=== PATIENT | male | born 1930 | race Caucasian/White ===

== ENCOUNTER 2017-11-18 06:40 | Inpatient (IN) | payer MEDICARE ==
[~2017-11-18] VITALS: Ht 170.2 cm; Wt 50.9 kg
[2017-11-18] MEDS ORDERED: IV NORMAL SALINE 1,000ML 1,000 ML IV SCH (06:53)
--- NOTE | 2017-11-18 07:06 | EKG ---
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
--- NOTE | 2017-11-18 07:47 | PHYS DOC ---
Past History Past Medical History: Diabetes, Hypertension, Other Additional Past Medical Histor: muscle weakness, major depression, chronic pain , hyperlipidemia Smoking: Non-smoker Adult General Chief Complaint Chief Complaint: HYPOTENSION HPI HPI 87-year-old male patient resident of [facility] brought in by EMS because of low blood pressure and altered level of consciousness. intermediate reports the patient had blood pressure of 70/40 this morning with heart rate of more than 100 and decrease of level of consciousness. EMS reported that patient had blood pressure of more than 100 and was awake. Patient did not have any treatment under and had blood pressure of 90/54 at arrival to ER patient is admitted but was able to answer the question. Patient denies any acute problem. Review of Systems Review of Systems Constitutional: Denies fever or chills [] Eyes: Denies change in visual acuity, redness, or eye pain [] HENT: Denies nasal congestion or sore throat [] Respiratory: Denies cough or shortness of breath [] Cardiovascular: No additional information not addressed in HPI [] GI: Denies abdominal pain, nausea, vomiting, bloody stools or diarrhea [] : Denies dysuria or hematuria [] Musculoskeletal: Denies back pain or joint pain [] Integument: Denies rash or skin lesions [] Neurologic: Denies headache, focal weakness or sensory changes [] Endocrine: Denies polyuria or polydipsia [] All other systems were reviewed and found to be within normal limits, except as documented in this note. Current Medications Current Medications Current Medications Medications (Trade) Dose Ordered Sig/Tom Start Time Stop Time Status Last Admin Dose Admin Sodium Chloride 1,000 ml @ 1,000 mls/hr Q1H 11/18/17 06:53 11/18/17 07:52 UNV Physical Exam Physical Exam Constitutional: Lethargic, mild distress, non-toxic appearance. [] HENT: Normocephalic, atraumatic, bilateral external ears normal, oropharynx dry oral breathing, no oral exudates, nose normal. [] Eyes: PERRLA, EOMI, conjunctiva normal, no discharge. [] Neck: Normal range of motion, no tenderness, supple, no stridor. [] Cardiovascular: Tachycardia, no murmur [] Lungs & Thorax: Bilateral breath sounds clear to auscultation [] Abdomen: Bowel sounds normal, soft, no tenderness, no masses, no pulsatile masses. [] Skin: Warm, dry, no erythema, no rash. [] Back: No tenderness, no CVA tenderness. [] Extremities: No tenderness, no cyanosis, no clubbing, bilateral heel padding, moves lower extremities Neurologic: Lethargic, oriented X 2, normal motor function, normal sensory function, no focal deficits noted. [] EKG EKG [EKG interpreted by me. EKG at 0703 showed sinus tachycardia, abnormal left axis deviation, left anterior fascicular block, no ST and T wave abnormality] Radiology/Procedures Radiology/Procedures [] Course & Med Decision Making Course & Med Decision Making Pertinent Labs and Imaging studies reviewed. (See chart for details) Evaluation of patient in ER showed 87-year-old male patient resident of [facility] brought in by EMS because of hypotension and altered level of consciousness. Patient had tachycardia and hypotension at arrival to ER that responded well to normal saline with increase of blood pressure to more than 100 and heart rate to less than 100. Patient was lethargic but able to answer the question appropriately and followed the command. Lactic acid was not elevated. Patient had leukocytosis with elevation of BUN/creatinine and creatinine. Conner catheter was placed and about 1000 oh the urine was drained. UA showed more than 40 WBC. Patient treated with IV fluid and Rocephin and admitted to hospital case with diagnosis of sepsis secondary to UTI. Dr. Salomon accepted admission at 0914. Patient and his son at [place] and his friend with [employer] informed about plan of care. Dragon Disclaimer Dragon Disclaimer This electronic medical record was generated, in whole or in part, using a voice recognition dictation system. Departure Departure: Impression: Primary Impression: Sepsis secondary to UTI Additional Impressions: Altered level of consciousness Hypotension Tachycardia Renal insufficiency Dehydration Leukocytosis Anemia Disposition: ADMITTED INPATIENT (At 0914) Admitting Physician: Russ Salomon Condition: IMPROVED Referrals: THEA MARCELO MD (PCP) Critical Care Time Critical care time was [80] minutes exclusive of procedures. Problem Qualifiers JAVON HOLLIDAY MD Nov 18, 2017 07:47
[2017-11-18 08:00] LABS: BASO # 0.1 x10^3/uL (0.0-0.2); BASO % 0 % (0-3); EOS % 0 % (0-3); HEMATOCRIT 31.8 % (39.0-53.0); LYMPH # 0.9 x10^3/uL (1.0-4.8); LYMPH % 6 % (24-48); MEAN CORPUSCULAR HEMOGLOBIN 33 pg (25-35); MEAN CORPUSCULAR HGB CONC 35 g/dL (31-37); MEAN CORPUSCULAR VOLUME 94 fL (79-100); MONO # 1.1 x10^3/uL (0.0-1.1); MONO % 7 % (0-9); NEUT # 13.7 x10^3uL (1.8-7.7); NEUT % 87 % (31-73); PLATELET COUNT 213 x10^3/uL (140-400); RED BLOOD COUNT 3.37 x10^6/uL (4.30-5.70); WHITE BLOOD COUNT 15.8 x10^3/uL (4.0-11.0)
--- NOTE | 2017-11-18 08:15 | RAD ---
PQRS Compliance Statement: One or more of the following individualized dose reduction techniques were utilized for this examination: 1. Automated exposure control 2. Adjustment of the mA and/or kV according to patient size 3. Use of iterative reconstruction technique CT HEAD WITHOUT CONTRAST History: AMS, little HX, not responsive to commands, sleeping and snoring Comparison: None. Technique: Axial images are obtained of the head from the skull base through the vertex without IV contrast. Findings: No mass-effect, midline shift, extra-axial fluid collection, hemorrhage, or obvious acute infarction is identified. Basilar cisterns are patent. The ventricles and sulci are prominent, consistent with age-related cerebral atrophy. There is periventricular white matter hypoattenuation. This is a nonspecific finding but is commonly due to chronic small vessel ischemic disease. Bone windows demonstrate no acute calvarial abnormality. The left sphenoid sinus is mostly opacified. The other visualized paranasal sinuses are clear. Mastoid air cells are well aerated. Dense atherosclerotic calcification of the distal vertebral arteries. IMPRESSION: 1. No acute intracranial abnormality. 2. Age-related cerebral atrophy and periventricular white matter changes of chronic small vessel ischemic disease. Electronically signed by: Mello Adhikari MD (11/18/2017 8:11 AM) [id number]
[2017-11-18 08:16] LABS: INFLUENZA A PATIENT NEGATIVE (NEGATIVE); INFLUENZA B PATIENT NEGATIVE (NEGATIVE)
[2017-11-18 08:23] LABS: ALBUMIN 2.9 g/dL (3.4-5.0); ALBUMIN/GLOBULIN RATIO 0.7 (1.0-1.7); CREATININE 1.6 mg/dL (0.7-1.3); GFR 41.2; MAGNESIUM 1.3 mg/dL (1.8-2.4); TOTAL BILIRUBIN 0.4 mg/dL (0.2-1.0); TOTAL PROTEIN 6.9 g/dL (6.4-8.2)
[2017-11-18 08:38] LABS: % BANDS 11 % (0-9); % LYMPHS 4 % (24-48); % MONOS 6 % (0-10); % SEGS 79 % (35-66); PLT ESTIMATE ADEQUATE (ADEQUATE)
[2017-11-18 08:39] LABS: TOXIC GRANULATION SLIGHT
[2017-11-18 08:40] LABS: POLYCHROMASIA SLIGHT
[2017-11-18 08:53] LABS: BILIRUBIN,URINE NEG (NEG); CLARITY,URINE CLOUDY; COLOR,URINE YELLOW; GLUCOSE,URINE NEG (NEG)
--- NOTE | 2017-11-18 08:53 | RAD ---
Portable chest, 11/18/2017: History: Altered level of consciousness The heart size and pulmonary vascularity are normal. There are mild interstitial opacities in the lung bases laterally. Fibrosis is suspected. There is a calcified granuloma in the left base. No pulmonary consolidation is seen. There is no evidence of pleural fluid. IMPRESSION: Mild bilateral basilar interstitial opacities most likely represent fibrosis. Active interstitial disease is less likely.
[2017-11-18 08:54] LABS: BACTERIA,URINE MOD /HPF (0-FEW); NITRITE,URINE NEG (NEG); SQUAMOUS EPITHELIAL CELL,UR OCC /LPF; UROBILINOGEN,URINE 0.2 mg/dL (0.2 mg/dL); WBC,URINE >40 /HPF (0-4)
[2017-11-18 08:55] LABS: HYALINE CASTS, URINE OCC /HPF
[2017-11-18] MEDS ORDERED: cefTRIAXone IV Push 1 GM VIAL. IVP ONE (09:30)
[2017-11-18] MEDS: IV NORMAL SALINE 1,000ML 1,000 ML IV SCH ×2 (09:39→19:51)
[2017-11-18 11:22] VITALS: BP 116/62
[2017-11-18 11:23] VITALS: BP 116/75
[2017-11-18 16:00] VITALS: BP 159/71
--- NOTE | 2017-11-18 17:10 | HP ---
ADMIT DATE: 11/18/2017 HISTORY OF PRESENT ILLNESS: The patient is an 87-year-old male patient, a resident at [facility], who was brought by EMS to the Emergency Room because of low blood pressure and altered level of consciousness. [facility] reports that the patient's blood pressure was only 70/40 this morning with a heart rate of more than 100 and with decreased level of consciousness, EMS reported the patient had blood pressure more than 100, was awake, he did not have any treatment and had blood pressures 90/54 on arrival to the Emergency Room, where he was extensively investigated and did receive IV fluid. His lab work showed leukocytosis, white cell count of 15,800. His chemistry showed also elevated BUN and creatinine and urinalysis showed that the patient has moderate amount of leukocyte esterase and more than 40 wbc's, moderate amount of bacteria. The patient was admitted for treatment of sepsis due to urinary tract infection. The patient himself is somewhat demented; although, he does answer questions at times appropriately. PAST MEDICAL HISTORY: Significant for type 2 diabetes, hypertension, major depression, chronic pain syndrome, and hyperlipidemia. PAST SURGICAL HISTORY: Unremarkable. FAMILY HISTORY: Unremarkable. SOCIAL HISTORY: He is apparently , has 1 son and grandson who keep in touch with him. He does not smoke, drink alcohol or use any recreational drugs. ALLERGIES: He is allergic to SULFA DRUGS. MEDICATIONS: He is currently on following medications: Tylenol 650 mg every 4 hours as needed, aspirin chewable tablet 81 mg once a day, escitalopram oxalate 10 mg once a day, guaifenesin extended release for Mucinex 1200 mg twice a day, lisinopril 10 mg once a day, lovastatin 20 mg once a day, Lyrica 75 mg 1 capsule 2 times a day, metformin 500 mg twice a day, multivitamin tablet 1 tablet once a day. He is also on vitamin with iron 1 tablet once a day. REVIEW OF SYSTEMS: Unobtainable. On arrival to the Emergency Room, the patient was pale, cachectic, but no jaundiced, cyanosis, or thyromegaly. No jugular venous distension. No lower limb edema. His heart rate was 100, blood pressure was 105/55, temperature was 97.6, respiratory rate was 18, and oxygen saturation was 99% on room air. HEAD, EARS, NOSE AND THROAT: Normocephalic, atraumatic. NECK: Supple. HEART: Showed normal first and second heart sounds. No gallop, rub or murmur. CHEST: Clear to auscultation. No crepitation or rhonchi. ABDOMEN: Distended, soft, and nontender. No guarding or rigidity. No organomegaly. Hernial orifices intact. Bowel sounds normal. NEUROLOGIC: He is awake, alert, somewhat confused. All his cranial nerves are intact. EXTREMITIES: He moves his extremities without difficulty, although apparently he is mostly bedbound, chair bound. He has deep tissue injury to both heels and also on the coccyx. LABORATORY DATA: His lab work on arrival showed that his white cell count was high at 15,800, hemoglobin 11, hematocrit 32, MCV 94, platelet count of 213,000, with normal manual differential. His chemistry showed a serum sodium 140, potassium 5, chloride 104, bicarbonate 27, anion gap of 9, BUN 49, creatinine 1.6, estimated GFR was 41 mL per minute, his glucose 138, lactic acid was 1.7, calcium was 9, magnesium was 1.3. Total bilirubin, AST, ALT, alkaline phosphatase were normal. His brain natriuretic peptide was 376. Total protein was 6.9, albumin 2.9, lipase was 65. Prothrombin time was 11.6, INR 1.1. Urinalysis showed the urine was yellow, cloudy with a pH of 5, specific gravity of 1.010. The urine was negative for protein, glucose, ketones, moderate amount of blood, large amount of leukocyte esterase, 6-10 rbc's per high power field, more than 40 wbc's, moderate amount of bacteria. Her influenza A and B were negative. His chest x-ray showed that there are mild bilateral basilar interstitial opacities, most likely represents fibrosis active interstitial disease is less likely and his CT scan of the head showed that there is no mass effect, midline shift, extra-axial fluid collection, hemorrhage or obvious acute infarction identified. Basilar cisterns are patent. The ventricles and sulci are prominent consistent with age-related cerebral atrophy. There is periventricular white matter hypoattenuation, this is a nonspecific finding, but it is commonly due to chronic small vessel disease. Bone windows demonstrate no acute calvarial abnormality. The left sphenoid sinus is mostly opacified. The other visualized sinuses are clear. Mastoid air cells are well aerated, dense, arteriosclerotic, calcification of the distal vertebral arteries. IMPRESSION: In summary, this is an 87-year-old male patient who was admitted with hypotension, altered mental status, was found to be in sepsis secondary to urinary tract infection. He has also renal impairment, dehydration, leukocytosis, and anemia. We will continue with IV antibiotic in the form of ceftriaxone, continue with all his other medications and decide on further management accordingly and await the result of the urine and blood culture and sensitivity. His other medical problems include diabetes mellitus, hyperlipidemia, hypertension, and normal gait. BEKA PLEITEZ MD DR: ALLEN/kar JOB#: [id number] / [id number]
[2017-11-18] MEDS ORDERED: GUAI12003 PO (19:14)
[2017-11-18] MEDS ORDERED: PREG75CA PO (19:14)
[2017-11-18] MEDS ORDERED: ZINC50TA2 PO (19:14)
[2017-11-18] MEDS ORDERED: METF500T4 PO (19:14)
[2017-11-18] MEDS ORDERED: LOVA20TA2 PO (19:14)
[2017-11-18] MEDS ORDERED: MULT1TAB52 PO (19:14)
[2017-11-18] MEDS ORDERED: ACET500T68 PO ×2 (19:14)
[2017-11-18] MEDS ORDERED: ESCITALOPRAM OX10 MG PO (19:14)
[2017-11-18] MEDS ORDERED: LISI10TA2 PO (19:14)
[2017-11-18] MEDS ORDERED: ASPI81TA50 PO (19:14)
--- NOTE | 2017-11-18 19:45 | NUR ---
The patient, JENNIFER TAVERA, 87 y/o, M admitted by BEKA PLEITEZ MD, was given written information regarding hospital policies, unit procedures and contact persons. Patient admitted to room 107 from the ED and arrived at 1050 via EMS. Vital signs assessed. Patient oriented to the room. Valuables were checked and left with patient.
[2017-11-18 22:28] VITALS: BP 124/71
[2017-11-18] MEDS ORDERED: ACETAMINOPHEN 500 MG TABLET PO PRN ×2 (22:30)
[2017-11-18] MEDS: ATORVASTATIN CALCIUM 10 MG TABLET. PO SCH (23:11)
[2017-11-18] MEDS: PREGABALIN 75 MG CAPSULE PO SCH (23:12)
[2017-11-19 02:00] VITALS: BP 117/69
[2017-11-19 05:07] VITALS: BP 144/72
[2017-11-19] MEDS: IV NORMAL SALINE 1,000ML 1,000 ML IV SCH ×2 (05:27→22:02)
[2017-11-19 06:46] LABS: HEMATOCRIT 30.8 % (39.0-53.0); HEMOGLOBIN 10.6 g/dL (13.0-17.5); RED BLOOD COUNT 3.26 x10^6/uL (4.30-5.70); RED CELL DISTRIBUTION WIDTH 13.8 % (11.5-14.5); WHITE BLOOD COUNT 11.1 x10^3/uL (4.0-11.0)
[2017-11-19 07:08] LABS: ALBUMIN 2.5 g/dL (3.4-5.0); ALBUMIN/GLOBULIN RATIO 0.7 (1.0-1.7); CALCIUM 8.3 mg/dL (8.5-10.1); GFR 70.8; POTASSIUM 4.7 mmol/L (3.5-5.1); TOTAL BILIRUBIN 0.4 mg/dL (0.2-1.0); TOTAL PROTEIN 6.2 g/dL (6.4-8.2)
[2017-11-19] MEDS ORDERED: metFORMIN 500 MG TABLET PO SCH (08:00)
[2017-11-19] MEDS ORDERED: ZINC GLUCONATE 50 MG PO SCH (09:00)
[2017-11-19] MEDS ORDERED: PNEUMOC CONJ VACC 23-VALENT 0.5 ML VIAL. VAX IM ONE (09:00)
[2017-11-19] MEDS: metFORMIN 500 MG TABLET PO SCH ×2 (09:40→17:13)
[2017-11-19] MEDS: MULTIVITAMIN with MINERAL TABLET. PO SCH (09:40)
[2017-11-19] MEDS: LACTOBACILLUS RHAMNOSUS GG 1 CAPSULE. PO SCH ×2 (09:40→20:50)
[2017-11-19] MEDS: PREGABALIN 75 MG CAPSULE PO SCH ×2 (09:41→20:49)
[2017-11-19] MEDS: ASPIRIN ENTERIC COATED 81 MG TABLET.DR. PO SCH (09:41)
[2017-11-19] MEDS: LISINOPRIL 10 MG TABLET PO SCH (09:41)
[2017-11-19] MEDS: cefTRIAXone IV Push 1 GM VIAL. IVP SCH (09:43)
[2017-11-19] MEDS: CITALOPRAM 20 MG TABLET. PO SCH (09:43)
[2017-11-19 10:57] VITALS: BP 137/66
[2017-11-19 14:27] VITALS: BP 135/63
--- NOTE | 2017-11-19 18:09 | NUR ---
Wound Care Wound care consult for pressure ulcer on L buttock. Pt has stage 2 on L buttock, a DTI on R heel, a trauma wound on R medial ankle and a trauma wound on L great toe. Cleansed wounds, pictured and measured BLE wounds. Dressed buttock with foam ad hydrocolloid, change every 3 days. Dressed ankle with xeroform and foam, change every 3-4 days. Dressed Bilat heels with skin prep and protective foams, L heel is boggy but has no breakdown at this time. Dressed great toe with skin prep, recommend to do this daily. No ohter wounds found on full skin inspection. Educated pt to keep rook boots on unless ambulating and to rotate pressure on buttocks at least every 2 hours to prevent further breakdown. Pt v/u. WC will continue to follow for possible changes. Instruction sheet left in room.
[2017-11-19 19:23] VITALS: BP 149/75
[2017-11-19] MEDS: ATORVASTATIN CALCIUM 10 MG TABLET. PO SCH (20:50)
[2017-11-19 23:40] VITALS: BP 161/75
--- NOTE | 2017-11-20 00:05 | NUR ---
Nursing Note Pt confused pulled apart IV accidentally, got his gown all wet. Can articulate to me that he has been "Sweating and is wet" needs a new gown.
[2017-11-20 05:32] VITALS: BP 118/47
[2017-11-20 07:09] LABS: HEMATOCRIT 29.4 % (39.0-53.0); HEMOGLOBIN 10.2 g/dL (13.0-17.5); RED BLOOD COUNT 3.13 x10^6/uL (4.30-5.70); RED CELL DISTRIBUTION WIDTH 13.8 % (11.5-14.5); WHITE BLOOD COUNT 7.5 x10^3/uL (4.0-11.0)
[2017-11-20 07:15] LABS: CALCIUM 8.3 mg/dL (8.5-10.1); GFR 70.8; POTASSIUM 4.5 mmol/L (3.5-5.1)
[2017-11-20] MEDS: LACTOBACILLUS RHAMNOSUS GG 1 CAPSULE. PO SCH ×2 (08:31→20:17)
[2017-11-20] MEDS: MULTIVITAMIN with MINERAL TABLET. PO SCH (08:32)
[2017-11-20] MEDS: CITALOPRAM 20 MG TABLET. PO SCH (08:32)
[2017-11-20] MEDS: PREGABALIN 75 MG CAPSULE PO SCH ×2 (08:32→20:17)
[2017-11-20] MEDS: metFORMIN 500 MG TABLET PO SCH ×2 (08:32→17:00)
[2017-11-20] MEDS: ASPIRIN ENTERIC COATED 81 MG TABLET.DR. PO SCH (08:33)
[2017-11-20] MEDS: LISINOPRIL 10 MG TABLET PO SCH (08:33)
[2017-11-20] MEDS: cefTRIAXone IV Push 1 GM VIAL. IVP SCH (09:00)
[2017-11-20 10:36] VITALS: BP 133/68
[2017-11-20] MEDS: IV NORMAL SALINE 1,000ML 1,000 ML IV SCH (13:20)
[2017-11-20 14:52] VITALS: BP 163/74
[2017-11-20 19:33] VITALS: BP 163/74
[2017-11-20] MEDS: ATORVASTATIN CALCIUM 10 MG TABLET. PO SCH (20:16)
[2017-11-20 23:19] VITALS: BP 138/70
--- NOTE | 2017-11-21 01:27 | PN ---
DATE: 11/19/2017 SUBJECTIVE: The patient is sitting comfortably in his chair, in no apparent distress. He is definitely more awake, alert, has done very well in his breakfast and lunch, and was able to walk with physical therapy questioning him, he denied any complaint. OBJECTIVE: GENERAL: When I examined him, he looked pale, but not jaundiced, cyanosis, or thyromegaly. No jugular venous distention edema. VITAL SIGNS: His heart rate was 84, blood pressure 137/66, temperature was 98.2, respiratory rate 20, and oxygen saturation was 100%, on 2 liters of oxygen. HEAD, EYES, EARS, NOSE AND THROAT: Showed normocephalic, atraumatic. NECK: Supple. HEART: Showed normal first and second heart sounds. No gallop, rub or murmur. CHEST: Clear to auscultation. No crepitation or rhonchi. ABDOMEN: Distended, soft, and nontender. NEUROLOGIC: He is definitely more awake, alert, responding appropriately. All cranial nerves are intact. He moves extremities without difficulty, ambulates with a walker with standby assist. His intake over the last 24 hours was 1883, output was 1750. LABORATORY DATA: White cell count of 11,000, hemoglobin 11, hematocrit 31, MCV 94, and platelet count of 177,000. His chemistry showed a serum sodium 143, potassium 109, bicarbonate 27, anion gap of 7, BUN 31, creatinine 1, estimated GFR was 70 mL per minute, his glucose 112, calcium was 8.3. Total bilirubin, AST, ALT, alkaline phosphatase were normal. Total protein was 6.2, albumin 2.5. His prothrombin time was 11.6, INR 1.1. His blood culture is negative. ASSESSMENT: 1. This is an 87-year-old male patient who was admitted with hypertension, altered mental status, was found to be septic secondary to urinary tract infection. 2. Renal impairment. 3. Dehydration. 4. Leukocytosis. 5. Anemia. PLAN: To continue with IV ceftriaxone, continue the IV fluid. Repeat his labs tomorrow and await the result of the urine culture. BEKA PLEITEZ MD DR: ALLEN/kar JOB#: [id number] / [id number]
[2017-11-21] MEDS: IV NORMAL SALINE 1,000ML 1,000 ML IV SCH ×2 (02:11→16:00)
[2017-11-21 05:33] VITALS: BP 135/72
[2017-11-21 07:40] LABS: HEMATOCRIT 28.9 % (39.0-53.0); RED BLOOD COUNT 3.1 x10^6/uL (4.30-5.70); RED CELL DISTRIBUTION WIDTH 13.6 % (11.5-14.5)
[2017-11-21 07:43] LABS: ALBUMIN 2.3 g/dL (3.4-5.0); ALBUMIN/GLOBULIN RATIO 0.7 (1.0-1.7); CALCIUM 8.4 mg/dL (8.5-10.1); GFR 70.8; POTASSIUM 4.8 mmol/L (3.5-5.1); TOTAL BILIRUBIN 0.3 mg/dL (0.2-1.0); TOTAL PROTEIN 5.8 g/dL (6.4-8.2)
[2017-11-21] MEDS: LACTOBACILLUS RHAMNOSUS GG 1 CAPSULE. PO SCH ×2 (08:50→20:15)
[2017-11-21] MEDS: ASPIRIN ENTERIC COATED 81 MG TABLET.DR. PO SCH (08:50)
[2017-11-21] MEDS: MULTIVITAMIN with MINERAL TABLET. PO SCH (08:51)
[2017-11-21] MEDS: metFORMIN 500 MG TABLET PO SCH ×2 (08:51→20:01)
[2017-11-21] MEDS: PREGABALIN 75 MG CAPSULE PO SCH ×2 (08:52→20:15)
[2017-11-21] MEDS: LISINOPRIL 10 MG TABLET PO SCH (08:55)
[2017-11-21 09:46] VITALS: BP 148/75
[2017-11-21 14:07] VITALS: BP 132/70
--- NOTE | 2017-11-21 16:31 | PN ---
DATE: 11/20/2017 SUBJECTIVE: The patient is resting, slightly propped up in bed, in no apparent respiratory distress, sleepy, but arousable. On questioning him, he denied any complaint. Nursing staff did not voice any concern and stated he had an uneventful night. PHYSICAL EXAMINATION: GENERAL: When I examined him, he looked well and was clearly in no apparent respiratory distress, pale, but no jaundice, cyanosis, or thyromegaly. No jugular venous distension. No limb edema. VITAL SIGNS: His heart rate was 95, blood pressure 163/74, temperature was 97.4, respiratory rate was 18, and oxygen saturation 100% on room air. HEAD, EYES, EARS, NOSE AND THROAT: Showed normocephalic, atraumatic. NECK: Supple. HEART: Showed normal first and second heart sounds with no gallop, rub or murmur. CHEST: Clear to auscultation. No crepitation or rhonchi. ABDOMEN: Distended, soft, nontender. No guarding or rigidity. No organomegaly. Hernial orifice intact. Bowel sounds normal. NEUROLOGIC: He is sleepy, but arousable. Cranial nerves intact. EXTREMITIES: He moves extremities without difficulty, although he is mostly bedbound, chair bound. His intake over the last 24 hours was 1880, output 1750. LABORATORY DATA: As of this morning showed a serum sodium 142, potassium 4.5, chloride 109, bicarbonate 27, anion gap of 6, BUN 24, creatinine 1, estimated GFR was 70 mL per minute. His blood sugar was 142, calcium was 8.3. White cell count is down to 7500, hemoglobin 10, hematocrit 29, MCV 94 and platelet count of 106,000. His urine culture showed growth of methicillin-susceptible Staph aureus, not Staph saprophyticus. The bacteria are sensitive to gentamicin, linezolid, nitrofurantoin, oxacillin, rifampin, tetracycline, trimethoprim, and sulfamethoxazole. His blood cultures are so far negative. PLAN: My plan is to switch him to cefuroxime 500 mg twice a day and repeat all his lab works tomorrow and discharge him hopefully back to [place] either tomorrow or Wednesday morning. BEKA PLEITEZ MD DR: ALLEN/kar JOB#: [id number] / [id number]
[2017-11-21 19:35] VITALS: BP 103/52
[2017-11-21] MEDS: ATORVASTATIN CALCIUM 10 MG TABLET. PO SCH (20:14)
[2017-11-21] MEDS: TAMSULOSIN 0.4 MG CAP.ER.24H. PO SCH (20:15)
[2017-11-21 23:00] VITALS: BP 137/65
[2017-11-22] MEDS: IV NORMAL SALINE 1,000ML 1,000 ML IV SCH ×2 (05:35→19:59)
[2017-11-22 05:55] VITALS: BP 113/55
[2017-11-22 06:12] LABS: BASO # 0.1 x10^3/uL (0.0-0.2); BASO % 1 % (0-3); EOS # 0.4 x10^3/uL (0.0-0.7); EOS % 5 % (0-3); HEMATOCRIT 25.5 % (39.0-53.0); LYMPH # 1.1 x10^3/uL (1.0-4.8); LYMPH % 13 % (24-48); MEAN CORPUSCULAR HEMOGLOBIN 33 pg (25-35); MEAN CORPUSCULAR HGB CONC 35 g/dL (31-37); MEAN CORPUSCULAR VOLUME 93 fL (79-100); MONO # 0.7 x10^3/uL (0.0-1.1); MONO % 8 % (0-9); NEUT % 73 % (31-73); PLATELET COUNT 155 x10^3/uL (140-400); RED BLOOD COUNT 2.75 x10^6/uL (4.30-5.70); RED CELL DISTRIBUTION WIDTH 13.8 % (11.5-14.5); WHITE BLOOD COUNT 8.2 x10^3/uL (4.0-11.0)
[2017-11-22 06:24] LABS: ALBUMIN 1.9 g/dL (3.4-5.0); ALBUMIN/GLOBULIN RATIO 0.6 (1.0-1.7); CREATININE 0.9 mg/dL (0.7-1.3); POTASSIUM 4.4 mmol/L (3.5-5.1); TOTAL BILIRUBIN 0.2 mg/dL (0.2-1.0); TOTAL PROTEIN 5.1 g/dL (6.4-8.2)
[2017-11-22] MEDS: VANCOMYCIN 125 MG/2.5 ML ORAL SOLUTION. PO SCH ×4 (08:52→19:59)
[2017-11-22] MEDS: metFORMIN 500 MG TABLET PO SCH ×2 (08:54→17:45)
[2017-11-22] MEDS: LACTOBACILLUS RHAMNOSUS GG 1 CAPSULE. PO SCH ×2 (08:54→20:00)
[2017-11-22] MEDS: ASPIRIN ENTERIC COATED 81 MG TABLET.DR. PO SCH (08:54)
[2017-11-22] MEDS: LISINOPRIL 10 MG TABLET PO SCH (08:55)
[2017-11-22] MEDS: MULTIVITAMIN with MINERAL TABLET. PO SCH (08:55)
[2017-11-22] MEDS: PREGABALIN 75 MG CAPSULE PO SCH ×3 (08:55→21:16)
[2017-11-22 10:39] VITALS: BP 113/49
--- NOTE | 2017-11-22 11:38 | PN ---
DATE: 11/21/2017 SUBJECTIVE: The patient is resting slightly propped up in bed, in no apparent distress. He was sleepy, but arousable. On questioning him, he denied any complaint. The nursing staff did not voice any concern and stated he had an uneventful night. PHYSICAL EXAMINATION: GENERAL: When I examined him, he looked pale, cachectic, but no jaundice, cyanosis, or thyromegaly. No jugular venous distension. No limb edema. VITAL SIGNS: His heart rate was 92, blood pressure was 148/75, temperature was 97.7, respiratory rate 24, and oxygen saturation was 100% on room air. HEAD, EYES, EARS, NOSE AND THROAT: Showed normocephalic, atraumatic. NECK: Supple. HEART: Showed normal first and second heart sounds with no gallop, rub or murmur. CHEST: Clear to auscultation. No crepitation or rhonchi. ABDOMEN: Distended, soft, nontender. No guarding or rigidity. No organomegaly. Hernial orifice intact. Bowel sounds normal. NEUROLOGIC: He is asleep, but arousable. Cranial nerves intact. He moves extremities without difficulty, ambulates with a walker. His intake over the last 24 hours was 2686, output was 2325. LABORATORY DATA: Showed a white cell count of 8000, hemoglobin 10, hematocrit 29, MCV 94 and platelet count of 169,000. Her chemistry showed a serum sodium 139, potassium 4.8, chloride 107, bicarbonate 27, anion gap of 5, BUN 19, creatinine 1, estimated GFR was 71 mL per minute, his glucose 120, calcium was 8.4. Total bilirubin, AST, ALT, alkaline phosphatase were normal. His total protein was 5.8, albumin 2.3. His prothrombin time was 11.6, INR 1.1. His urine culture has grown coagulase negative staph, species not Staph saprophyticus with the growth of 50,000-100,000 colony forming units per mL. The patient is methicillin-sensitive Staph aureus. The bacteria is sensitive to gentamicin, linezolid, nitrofurantoin, rifampin, tetracycline and trimethoprim sulfamethoxazole. The patient was switched to linezolid and can be switched tomorrow to either trimethoprim sulfamethoxazole or tetracycline, can be discharged back to the [facility] to finish treatment there. ASSESSMENT: 1. Hypertension with altered mental status and was found to be septic secondary to urinary tract infection. 2. Urine culture has grown methicillin-sensitive Staphylococcus aureus. 3. Renal impairment, resolved. 4. Dehydration, resolved. 5. Leukocytosis, resolved. 6. Anemia, stable with hemoglobin of around 10 and hematocrit 30. BEKA PLEITEZ MD DR: ALLEN/kar JOB#: [id number] / [id number]
[2017-11-22 14:23] VITALS: BP 124/63
[2017-11-22 19:28] VITALS: BP 147/69
[2017-11-22] MEDS: ATORVASTATIN CALCIUM 10 MG TABLET. PO SCH (20:00)
[2017-11-22] MEDS: TAMSULOSIN 0.4 MG CAP.ER.24H. PO SCH (20:00)
--- NOTE | 2017-11-23 02:40 | PN ---
DATE: 11/22/2017 CURRENT PROBLEMS: 1. Methicillin-susceptible Staph aureus urinary tract infection. 2. Altered mental status, which has definitely improved. 3. Sepsis secondary to urinary tract infection. 4. Dehydration, improved. 5. Leukocytosis, improved. 6. Normochromic, normocytic anemia. 7. Severe protein-calorie malnutrition and underweight for height. 8. New onset diarrhea x3, awaiting C. diff. SUBJECTIVE: An 87-year-old ____ care today with the above problems. He is doing a little bit better. He has had one episode of diarrhea this morning. His C. diff is pending. Otherwise, he has been tolerating his medications fine, sitting up in a chair. [facility] is [facility]. OBJECTIVE: VITAL SIGNS: Blood pressure 113/49, pulse 78, respirations 22, temperature 97.6, pulse ox 100% on 2 liters, current weight is 111.19. GENERAL: Frail elderly male, in no acute distress, sitting up in the chair. His color is pale. HEENT: Tongue moist. NECK: Supple. LUNGS: Clear. CARDIOVASCULAR: Regular rhythm and rate without murmur. ABDOMEN: Soft, nontender. EXTREMITIES: Without edema or tenderness. LABORATORY DATA: Hemoglobin is 9.0, hematocrit is 25.5. This is a drop from 11 on the 4th, but he was very dehydrated. Stated urine culture grew out Coag negative staph. PLAN: Await the C. diff, did start him empirically on p.o. vancomycin and we will continue to monitor his condition, probably discharge tomorrow. YONI CORTEZ DO DR: CHICHI/kar JOB#: [id number] / [id number]
[2017-11-23 05:42] VITALS: BP 143/63
[2017-11-23 07:02] LABS: ALBUMIN 2.1 g/dL (3.4-5.0); ALBUMIN/GLOBULIN RATIO 0.6 (1.0-1.7); CALCIUM 8.3 mg/dL (8.5-10.1); GFR 70.8; MAGNESIUM 1.2 mg/dL (1.8-2.4); POTASSIUM 4.7 mmol/L (3.5-5.1); TOTAL BILIRUBIN 0.3 mg/dL (0.2-1.0); TOTAL PROTEIN 5.5 g/dL (6.4-8.2)
[2017-11-23 07:19] LABS: HEMATOCRIT 28.2 % (39.0-53.0); HEMOGLOBIN 9.3 g/dL (13.0-17.5); MEAN CORPUSCULAR HEMOGLOBIN 31 pg (25-35); MEAN CORPUSCULAR HGB CONC 33 g/dL (31-37); MEAN CORPUSCULAR VOLUME 94 fL (79-100); PLATELET COUNT 186 x10^3/uL (140-400); RED BLOOD COUNT 3.01 x10^6/uL (4.30-5.70); RED CELL DISTRIBUTION WIDTH 13.9 % (11.5-14.5); WHITE BLOOD COUNT 6.8 x10^3/uL (4.0-11.0)
[2017-11-23] MEDS ORDERED: MAGNESIUM SULFATE 2GM 50 ML IV ONE (08:30)
[2017-11-23] MEDS: PREGABALIN 75 MG CAPSULE PO SCH (08:39)
[2017-11-23] MEDS: metFORMIN 500 MG TABLET PO SCH (08:39)
[2017-11-23] MEDS: ASPIRIN ENTERIC COATED 81 MG TABLET.DR. PO SCH (08:40)
[2017-11-23] MEDS: LACTOBACILLUS RHAMNOSUS GG 1 CAPSULE. PO SCH (08:40)
[2017-11-23] MEDS: LISINOPRIL 10 MG TABLET PO SCH (08:40)
[2017-11-23] MEDS: MULTIVITAMIN with MINERAL TABLET. PO SCH (08:40)
[2017-11-23] MEDS ORDERED: ASCORBIC ACID 500 MG TABLET PO SCH (09:00)
[2017-11-23] MEDS ORDERED: DOXYCYCLINE HYCLATE 100 MG TABLET PO SCH (09:00)
[2017-11-23 09:22] LABS: % BANDS 1 % (0-9); % BASOS 1 % (0-3); % EOS 3 % (0-5); % LYMPHS 17 % (24-48); % MONOS 5 % (0-10); % SEGS 73 % (35-66)
[2017-11-23 09:23] LABS: ANISOCYTOSIS SLIGHT; MICROCYTOSIS SLIGHT; PLT ESTIMATE ADEQUATE (ADEQUATE)
[2017-11-23 10:43] VITALS: BP 135/65
--- NOTE | 2017-11-23 11:17 | PDOC3 ---
Discharge Summary Visit Information Date of Admission: Nov 18, 2017 Date of Discharge: Nov 23, 2017 Final Diagnosis Problems Medical Problems: (1) Altered level of consciousness Status: Acute (2) Anemia Status: Acute (3) Dehydration Status: Acute (4) Hypotension Status: Acute (5) Leukocytosis Status: Acute (6) Renal insufficiency Status: Acute (7) Sepsis secondary to UTI Status: Acute (8) Tachycardia Status: Acute CURRENT PROBLEMS: 1. Methicillin-susceptible Staph aureus urinary tract infection. 2. Altered mental status, which has definitely improved. 3. Sepsis secondary to urinary tract infection. 4. Dehydration, improved. 5. Leukocytosis, improved. 6. Normochromic, normocytic anemia. 7. Severe protein-calorie malnutrition and underweight for height. 8. New onset diarrhea x3, awaiting C. diff.-c.diff neg 9. hypomagnesemia-being treated 10.STAGE 2 PRESSURE WOUND LEFT BUTTOCK 11. DTI RIGHT HEEL 12. TRAUMA WOUND RIGHT MEDIAL ANKLE AND LEFT GREAT TOE Problems: Brief Hospital Course Allergies Allergies Coded Allergies Type Severity Reaction Last Updated Verified Sulfa (Sulfonamide Antibiotics) Allergy Intermediate 11/19/17 Yes Vital Signs Vital Signs Date Time Temp Pulse Resp B/P (MAP) Pulse Ox O2 Delivery O2 Flow Rate FiO2 11/23/17 10:43 97.6 78 20 135/65 (88) 100 11/23/17 08:00 Nasal Cannula 2.0 Lab Results Laboratory Tests Test 11/21/17 11:24 11/21/17 16:21 11/21/17 22:05 11/22/17 05:59 Glucose (Fingerstick) 194 mg/dL (70-99) 158 mg/dL (70-99) Clostridium difficile Toxin (PCR) Negative (Negative) White Blood Count 8.2 x10^3/uL (4.0-11.0) Red Blood Count 2.75 x10^6/uL (4.30-5.70) Hemoglobin 9.0 g/dL (13.0-17.5) Hematocrit 25.5 % (39.0-53.0) Mean Corpuscular Volume 93 fL (79-100) Mean Corpuscular Hemoglobin 33 pg (25-35) Mean Corpuscular Hemoglobin Concent 35 g/dL (31-37) Red Cell Distribution Width 13.8 % (11.5-14.5) Platelet Count 155 x10^3/uL (140-400) Neutrophils (%) (Auto) 73 % (31-73) Lymphocytes (%) (Auto) 13 % (24-48) Monocytes (%) (Auto) 8 % (0-9) Eosinophils (%) (Auto) 5 % (0-3) Basophils (%) (Auto) 1 % (0-3) Neutrophils # (Auto) 6.0 x10^3uL (1.8-7.7) Lymphocytes # (Auto) 1.1 x10^3/uL (1.0-4.8) Monocytes # (Auto) 0.7 x10^3/uL (0.0-1.1) Eosinophils # (Auto) 0.4 x10^3/uL (0.0-0.7) Basophils # (Auto) 0.1 x10^3/uL (0.0-0.2) Sodium Level 140 mmol/L (136-145) Potassium Level 4.4 mmol/L (3.5-5.1) Chloride Level 108 mmol/L (98-107) Carbon Dioxide Level 24 mmol/L (21-32) Anion Gap 8 (6-14) Blood Urea Nitrogen 20 mg/dL (8-26) Creatinine 0.9 mg/dL (0.7-1.3) Estimated GFR (Cockcroft-Gault) 80.0 BUN/Creatinine Ratio 22 (6-20) Glucose Level 119 mg/dL (70-99) Calcium Level 8.0 mg/dL (8.5-10.1) Total Bilirubin 0.2 mg/dL (0.2-1.0) Aspartate Amino Transf (AST/SGOT) 18 U/L (15-37) Alanine Aminotransferase (ALT/SGPT) 16 U/L (16-63) Alkaline Phosphatase 50 U/L (46-116) Total Protein 5.1 g/dL (6.4-8.2) Albumin 1.9 g/dL (3.4-5.0) Albumin/Globulin Ratio 0.6 (1.0-1.7) Test 11/22/17 07:18 11/22/17 11:28 11/22/17 16:25 11/22/17 19:41 Glucose (Fingerstick) 111 mg/dL (70-99) 186 mg/dL (70-99) 140 mg/dL (70-99) 138 mg/dL (70-99) Test 11/23/17 06:11 11/23/17 07:31 White Blood Count 6.8 x10^3/uL (4.0-11.0) Red Blood Count 3.01 x10^6/uL (4.30-5.70) Hemoglobin 9.3 g/dL (13.0-17.5) Hematocrit 28.2 % (39.0-53.0) Mean Corpuscular Volume 94 fL (79-100) Mean Corpuscular Hemoglobin 31 pg (25-35) Mean Corpuscular Hemoglobin Concent 33 g/dL (31-37) Red Cell Distribution Width 13.9 % (11.5-14.5) Platelet Count 186 x10^3/uL (140-400) Segmented Neutrophils % 73 % (35-66) Band Neutrophils % 1 % (0-9) Lymphocytes % 17 % (24-48) Monocytes % 5 % (0-10) Eosinophils % 3 % (0-5) Basophils % 1 % (0-3) Platelet Estimate Adequate (ADEQUATE) Anisocytosis Slight Microcytosis Slight Sodium Level 142 mmol/L (136-145) Potassium Level 4.7 mmol/L (3.5-5.1) Chloride Level 109 mmol/L (98-107) Carbon Dioxide Level 28 mmol/L (21-32) Anion Gap 5 (6-14) Blood Urea Nitrogen 18 mg/dL (8-26) Creatinine 1.0 mg/dL (0.7-1.3) Estimated GFR (Cockcroft-Gault) 70.8 BUN/Creatinine Ratio 18 (6-20) Glucose Level 113 mg/dL (70-99) Calcium Level 8.3 mg/dL (8.5-10.1) Magnesium Level 1.2 mg/dL (1.8-2.4) Total Bilirubin 0.3 mg/dL (0.2-1.0) Aspartate Amino Transf (AST/SGOT) 21 U/L (15-37) Alanine Aminotransferase (ALT/SGPT) 21 U/L (16-63) Alkaline Phosphatase 54 U/L (46-116) Total Protein 5.5 g/dL (6.4-8.2) Albumin 2.1 g/dL (3.4-5.0) Albumin/Globulin Ratio 0.6 (1.0-1.7) Glucose (Fingerstick) 94 mg/dL (70-99) Brief Hospital Course Mr. Ramirez is a 87 old [sex] who presented with [ ] HISTORY OF PRESENT ILLNESS: The patient is an 87-year-old male patient, a resident at [facility], who was brought by EMS to the Emergency Room because of low blood pressure and altered level of consciousness. alf reports that the patient's blood pressure was only 70/40 this morning with a heart rate of more than 100 and with decreased level of consciousness, EMS reported the patient had blood pressure more than 100, was awake, he did not have any treatment and had blood pressures 90/54 on arrival to the Emergency Room, where he was extensively investigated and did receive IV fluid.He was hydrated and treated with antibiotics. He developed diarrhea but his c. diff was negative and the diarrhea was not severe. He was started on nutritional supplements for his malnutrition. He will be going back to nursing facility on skilled services. HE WAS SEEN BY THE WOUND NURSE AND A PLAN OF CARE WAS PRESCRIBED FOR HIS WOUNDS. Discharge Information Condition at Discharge: Improved Disposition/Orders: D/C to Another Facility Dischare Medications Current Medications Sodium Chloride 1,000 ml @ 1,000 mls/hr Q1H IV Last administered on 11/18/17at 07:30; Start 11/18/17 at 06:53; Stop 11/18/17 at 09:17; Status DC Ceftriaxone Sodium 1 gm/ Sodium Chloride 50 ml @ 100 mls/hr 1X ONCE IV ; Start 11/18/17 at 09:15; Stop 11/18/17 at 09:44; Status UNV Sodium Chloride 1,000 ml @ 100 mls/hr Q10H IV Last administered on 11/19/17at 05 :27; Start 11/18/17 at 09:15; Stop 11/19/17 at 09:14; Status DC Ceftriaxone Sodium (Rocephin) 1 gm 1X ONCE IVP Last administered on 11/18/17at 09:30; Start 11/18/17 at 09:30; Stop 11/18/17 at 09:31; Status DC Pneumococcal Polyvalent Vaccine (Pneumovax 23) 0.5 ml ONCE ONCE VAX IM Last administered on 11/19/17at 20:46; Start 11/19/17 at 09:00; Stop 11/19/17 at 09:01; Status DC Acetaminophen (Tylenol) 1,000 mg PRN Q6HRS PRN PO MILD PAIN / TEMP Last administered on 11/20/17at 00:45; Start 11/18/17 at 22:30 Acetaminophen (Tylenol) 500 mg PRN Q4HRS PRN PO PAIN / TEMP Last administered on 11/22/17 20:00; Start 11/18/17 at 22:30 Aspirin (Aspirin Enteric Coated) 81 mg DAILY PO Last administered on 11/23/17at 08:40; Start 11/19/17 at 09:00 Lisinopril (Prinivil) 10 mg DAILY PO Last administered on 11/23/17 08:40; Start 11/19/17 at 09:00 Metformin HCl (Glucophage) 500 mg BIDWMEALS PO ; Start 11/19/17 at 08:00; Stop at 08:00; Status DC Pregabalin (Lyrica) 75 mg BID PO Last administered on 11/23/17at 08:39; Start 11/18/17 at 22:30 Citalopram Hydrobromide (CeleXA) 20 mg DAILY PO Last administered on 11/20/17at 08:32; Start 11/19/17 at 09:00; Stop 11/20/17 at 17:26; Status DC Guaifenesin (Mucinex Er) 1,200 mg BID PO Last administered on 11/23/17 08:40; Start 11/18/17 at 22:30 Atorvastatin Calcium (Lipitor) 5 mg QHS PO Last administered on 11/22/17at 20:00 ; Start 11/18/17 at 22:30 Multivitamins/ Calcium (Thera-M Plus) 1 tab DAILY PO Last administered on at 08:40; Start 11/19/17 at 09:00 Non-Formulary Medication 50 mg DAILY PO ; Start 11/19/17 at 09:00; Stop 11/19/17 at 09:00; Status DC Ceftriaxone Sodium 1 gm/ Sodium Chloride 50 ml @ 100 mls/hr Q24H IV ; Start 11/19/17 at 09:30; Status UNV Ceftriaxone Sodium (Rocephin) 1 gm Q24H IVP Last administered on 11/20/17at 09:00 ; Start 11/19/17 at 09:00; Stop 11/20/17 at 17:25; Status DC Lactobacillus Rhamnosus (Culturelle) 1 cap BID PO Last administered on at 08:40; Start 11/19/17 at 09:00 Metformin HCl (Glucophage) 500 mg BIDWMEALS PO Last administered on 11/23/17at 08 :39; Start 11/19/17 at 08:00 Sodium Chloride 1,000 ml @ 75 mls/hr [id number] IV Last administered on 11/22/17at 19:59; Start 11/20/17 at 00:00; Stop 11/23/17 at 08:24; Status DC Linezolid 300 ml @ 300 mls/hr Q12H IV Last administered on 11/22/17 19:59; Start 11/20/17 at 18:00; Stop 11/23/17 at 08:25; Status DC Tamsulosin HCl (Flomax) 0.4 mg QHS PO Last administered on 11/22/17at 20:00; Start 11/21/17 at 21:00 Vancomycin HCl 125 mg [id number] PO Last administered on 11/22/17at 19:59; Start 11/22/17 at 09:00; Stop 11/22/17 at 21:48; Status DC Magnesium Sulfate 50 ml @ 25 mls/hr 1X ONCE IV Last administered on 11/23/17at 10:07; Start 11/23/17 at 08:30; Stop 11/23/17 at 10:29; Status DC Ascorbic Acid (Vitamin C) 500 mg DAILY PO Last administered on 11/23/17at 10:06; Start 11/23/17 at 09:00 Doxycycline Hyclate (Vibra-Tab) 100 mg BID PO Last administered on 11/23/17at 10: 05; Start 11/23/17 at 09:00 Magnesium Oxide (Magnesium Oxide) 400 mg BIDACLD PO ; Start 11/23/17 at 11:30 Active Scripts Active Reported Mucinex (Guaifenesin) 1,200 Mg Tbmp.12hr 1,200 Mg PO BID Zinc (Zinc Gluconate) 50 Mg Tablet 50 Mg PO DAILY 14 Days Multivitamins (Multivitamin) 1 Each Tablet 1 Tab PO DAILY Metformin Hcl 500 Mg Tablet 500 Mg PO BIDWMEALS Lyrica (Pregabalin) 75 Mg Capsule 75 Mg PO BID Lovastatin 20 Mg Tablet 20 Mg PO DAILY Lisinopril 10 Mg Tablet 10 Mg PO DAILY Escitalopram Oxalate 10 Mg Tablet 10 Mg PO DAILY Aspir-Low (Aspirin) 81 Mg Tablet.dr 81 Mg PO DAILY Acetaminophen 500 Mg Tablet 1,000 Mg PO Q6HRS PRN Acetaminophen 500 Mg Tablet 500 Mg PO Q4HRS PRN MDD / Patient Instructions Patient Instuctions DISCHARGE TO SNF.MEDIOCATIONS RECONCILED. YONI CORTEZ DO Nov 23, 2017 11:17
[2017-11-23] MEDS ORDERED: MAGNESIUM OXIDE 400 MG TABLET PO SCH (11:30)
--- NOTE | 2017-11-23 12:55 | NUR ---
NSG NOTE; DISCHARGE REPORT CALLED TO [facility] EUGENE LEFT IN PLACE PER DR CORTEZ'S ORDERS HARD COPY OF CHART SENT WITH PT ON DISCHARGE AT 1255 TO [facility] VIA W/C ACCOMP BY TRANSPORT PERSONNEL
== END 2017-11-23 12:55 | disposition home or self-care (01) | DRG 871 ==
LOC: ER 06:40 → 1 SOUTH 09:19
PROVIDERS: ADMIT Internal Medicine; ATTEND Internal Medicine
DX: A41.9 Sepsis, unspecified organism (principal); E43 Unspecified severe protein-calorie malnutrition; L89.322 Pressure ulcer of left buttock, stage 2; G93.41 Metabolic encephalopathy; L89.610 Pressure ulcer of right heel, unstageable; D64.9 Anemia, unspecified; E86.0 Dehydration; E83.42 Hypomagnesemia; E11.9 Type 2 diabetes mellitus without complications; N39.0 Urinary tract infection, site not specified; Z68.1 Body mass index [BMI] 19.9 or less, adult; F03.90 Unspecified dementia, unspecified severity, without behavioral disturbance, psychotic disturbance, mood disturbance, and anxiety; E78.5 Hyperlipidemia, unspecified; F32.9 Major depressive disorder, single episode, unspecified; I10 Essential (primary) hypertension; N28.9 Disorder of kidney and ureter, unspecified; G89.4 Chronic pain syndrome; B95.61 Methicillin susceptible Staphylococcus aureus infection as the cause of diseases classified elsewhere; R19.7 Diarrhea, unspecified; S91.001A Unspecified open wound, right ankle, initial encounter; S91.102A Unspecified open wound of left great toe without damage to nail, initial encounter; X58.XXXA Exposure to other specified factors, initial encounter; Z88.2 Allergy status to sulfonamides; Z79.899 Other long term (current) drug therapy; Z79.82 Long term (current) use of aspirin; Y93.89 Activity, other specified; Y92.89 Other specified places as the place of occurrence of the external cause; Y99.8 Other external cause status; Z79.84 Long term (current) use of oral hypoglycemic drugs
CPT/HCPCS: 36415; 51702; 70450; 71045; 80048; 80053; 81001; 82553; 82947; 83605; 83690; 83735; 83880; 84484; 85007; 85025; 85027; 85610; 87040; 87086; 87186; 87324; 87641; 87804; 90732; 93005; 96361; 96374; 99292; J0696; J2020; J3475; 97110; 97116; 97530; 99291-25; J7030